=== PATIENT | female | born 1990 | race Hispanic/Latino ===

== ENCOUNTER 2018-01-22 13:20 | Emergency (ER) | payer SELFPAY ==
[2018-01-22] MEDS ORDERED: NA CHLORIDE 0.9% 1,000 ML ONE (14:23)
[2018-01-22] MEDS ORDERED: ONDANSETRON 4 MG/2 ML VIAL ONE (14:23)
[2018-01-22] MEDS ORDERED: MORPHINE 4 MG/ML SYR ONE (14:23)
[2018-01-22 14:33] LABS: Absolute Lymphocytes (CBC) 0.9 K/uL (0.7-4.9); Absolute Monocytes 0.3 K/uL (0.1-1.3); Absolute Neutrophil 2.7 K/uL (1.8-8.0); Basophils % 0.6 % (0-1.3); Hematocrit 35.8 % (36.0-45.0); Lymphocytes % 21.8 % (15.3-44.8); MCH 25.5 pg (27.0-35.0); MCV 78.3 fL (80-100); RBC Red Blood Cell Count 4.57 M/uL (3.86-4.86)
[2018-01-22 14:39] LABS: ALT/SGPT 21 U/L (12-78); AST/SGOT 17 U/L (15-37); Albumin 4.3 g/dL (3.4-5.0); Alkaline Phosphatase 74 U/L (45-117); BUN Blood Urea Nitrogen 11 mg/dL (7-18); Bicarbonate 29 mmol/L (21-32); Bilirubin Direct 0.1 mg/dL (0-0.2); Bilirubin Total 0.5 mg/dL (0.2-1.0); Glucose Level 98 mg/dL (74-106); Lipase 104 U/L (73-393); Potassium 3.9 mmol/L (3.5-5.1); Protein, Total 8.1 g/dL (6.4-8.2); Sodium Level 141 mmol/L (136-145)
[2018-01-22 15:40] LABS: Urine Blood 3+ (NEG); Urine Glucose NEGATIVE (NEG); Urine Protein TRACE (NEG); Urine Specific Gravity >1.030 (1.005-1.030)
[2018-01-22 15:43] LABS: Urine Bacteria <20 /HPF (<20); Urine Culture Reflex Order NOT NEEDED; Urine Mucus SLIGHT /HPF (NONE SEEN); Urine RBC 20-50 /HPF (NONE SEEN)
--- NOTE | 2018-01-22 16:13 | RAD REPORT ---
EXAM DESCRIPTION: CT - Stone Protocol - 01/22/2018 3:57 pm CLINICAL HISTORY: Right flank pain COMPARISON: None. TECHNIQUE: Axial 5 mm thick images were obtained without oral or IV contrast. The [id number] span s the entirety of the system partially obscuring uppermost abdomen and lung bases. All CT scans are performed using dose optimization technique as appropriate and may include automated exposure control or mA/KV adjustment according to patient size. FINDINGS: No hydronephrosis is present and no obstructing ureteral calculi. No suspicious renal mass es. Isodense masses and pyelonephritis are not excluded on a stone protocol CT scan. No urinary bladd er suspicious finding. Uterus and ovaries show no suspicious findings. Imaged portions of the liver, spleen and pancreas show no suspicious findings on non-contrast imaging . At least 1 gallstone is present 16 mm in size. No significant adrenal finding. No suspicious bowel findings. The appendix is normal. A few small nonspecific lymph nodes are present . No mass or bulky lymphadenopathy. Patient has a very small umbilical hernia containing only fat. No f ree air, free fluid or inflammatory stranding. No significant bony abnormality. IMPRESSION: No hydronephrosis, obstructing calculus or other acute finding. Isodense masses and pyelonephritis are not excluded on stone protocol technique. Cholelithiasis without evidence for active gallbladder or biliary tree process.
--- NOTE | 2018-01-22 16:36 | ER ---
Nurse's Notes [facility] Name: Letitia Alexandra Age: 27 yrs Sex: Female : 1990 Arrival Date: 01/22/2018 Time: 13:23 Bed 24 Private MD: Diagnosis: Cholelithiasis Presentation: 01/22 13:37 Presenting complaint: Patient states: Right flank pain that started yesterday afternoon aj and has not gotten better. Patient reports pain with palpation and movement. Transition of care: patient was not received from another setting of care. Onset of symptoms was January 21, 2018. Risk Assessment: Do you want to hurt yourself or someone else? Patient reports no desire to harm self or others. Initial Sepsis Screen: Does the patient meet any 2 criteria? No. Patient's initial sepsis screen is negative. Does the patient have a suspected source of infection? No. Patient's initial sepsis screen is negative. Care prior to arrival: None. 13:37 Method Of Arrival: Wheelchair aj 13:37 Acuity: RHYS 3 aj Triage Assessment: 13:38 General: Appears in no apparent distress. uncomfortable, Behavior is calm, cooperative, aj appropriate for age. Pain: Complains of pain in posterior aspect of right lateral abdomen, anterior aspect of right lateral abdomen and right femoral area. Neuro: Level of Consciousness is awake, alert, obeys commands, Oriented to person, place, time, situation, Appropriate for age. Respiratory: Airway is patent Respiratory effort is even, unlabored, Respiratory pattern is regular, symmetrical. GI: Abdomen is flat, non-distended, Reports diarrhea. : Reports pain in right flank(s). Derm: Skin is intact, is healthy with good turgor, Skin is pink, warm \T\ dry. normal. 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 - Social history:: Smoking status: Patient/guardian denies using tobacco. - Ebola Screening: : Patient negative for fever greater than or equal to 101.5 degrees Fahrenheit, and additional compatible Ebola Virus Disease symptoms Patient denies exposure to infectious person Patient denies travel to an Ebola-affected area in the 21 days before illness onset No symptoms or risks identified at this time. Screenin:57 Abuse screen: Denies threats or abuse. Nutritional screening: No deficits noted. tl3 Tuberculosis screening: No symptoms or risk factors identified. Fall Risk None identified. Assessment: 13:57 General: Appears distressed, uncomfortable, slender, well groomed, well developed, well tl3 nourished, Behavior is calm, cooperative, appropriate for age. Pain: Complains of pain in anterior aspect of right lateral abdomen and posterior aspect of right lateral abdomen Pain currently is 9 out of 10 on a pain scale. Neuro: Level of Consciousness is awake, alert, obeys commands, Oriented to person, place, time, situation, Appropriate for age. Cardiovascular: Patient's skin is warm and dry. Respiratory: Airway is patent Respiratory effort is even, unlabored, Respiratory pattern is regular, symmetrical. GI: Bowel sounds present X 4 quads. Abdomen is tender to palpation in right upper quadrant and right lower quadrant. : No signs and/or symptoms were reported regarding the genitourinary system. EENT: No signs and/or symptoms were reported regarding the EENT system. Derm: No signs and/or symptoms reported regarding the dermatologic system. Musculoskeletal: Reports. 13:57 Reassessment: pt reports that pain has been intermittent for the last three months, tl3 usually resolves within a couple of hours, but this time it has persisted for a couple of days, unable to sleep or get into a comfortable position. 15:40 Reassessment: Patient appears in no apparent distress at this time. No changes from tl3 previously documented assessment. Patient and/or family updated on plan of care and expected duration. Pain level reassessed. Patient is alert, oriented x 3, equal unlabored respirations, skin warm/dry/pink. 16:54 Reassessment: Patient appears in no apparent distress at this time. No changes from tl3 previously documented assessment. Patient and/or family updated on plan of care and expected duration. Pain level reassessed. Patient is alert, oriented x 3, equal unlabored respirations, skin warm/dry/pink. Vital Signs: 13:38 BP 105 / 69; Pulse 80; Resp 19; Temp 97.4; Pulse Ox 98% on R/A; Weight 86.18 kg; Height aj 5 ft. 5 in. (165.10 cm); 15:40 BP 107 / 67; Pulse 51; Resp 18; Pulse Ox 100% on R/A; tl3 16:54 BP 107 / 67; Pulse 56; Resp 16; Pulse Ox 100% ; tl3 13:38 Body Mass Index 31.62 (86.18 kg, 165.10 cm) ED Course: 13:23 Patient arrived in ED. rg4 13:38 Triage completed. aj 13:38 Arm band placed on right wrist. Patient placed in an exam room. aj 13:45 Marcial Ellison, BRAEDEN is PHCP. pm1 13:45 Vikash Don MD is Attending Physician. pm1 13:54 Ela Alves, TEMI is Primary Nurse. tl3 13:57 Patient has correct armband on for positive identification. Bed in low position. Call tl3 light in reach. Side rails up X 1. Pulse ox on. NIBP on. 13:57 No provider procedures requiring assistance completed. tl3 14:07 Radiology exam delayed due to test not completed at this time. vr 14:14 Initial lab(s) drawn, by me, sent to lab. Inserted saline lock: 20 gauge in right tl3 antecubital area, using aseptic technique. Blood collected. 14:15 CT Stone Protocol Sent. tl3 15:18 Urine collected: clean catch specimen, clear. tl3 15:32 Radiology exam delayed due to test not completed at this time. vr 15:[address] via wheelchair. nj 15:57 CT Stone Protocol In Process Unspecified. EDMS 16:35 Dallin Lewis MD is Referral Physician. pm1 16:54 IV discontinued, intact, bleeding controlled, No redness/swelling at site. Pressure tl3 dressing applied. Administered Medications: 14:27 Drug: Zofran 4 mg Route: IVP; Infused Over: 2 mins; Site: right antecubital; tl3 15:41 Follow up: Response: No adverse reaction tl3 14:28 Drug: NS 0.9% 1000 ml Route: IV; Rate: 1000 ml; Site: right antecubital; Delivery: tl3 Primary tubing; 15:41 Follow up: IV Status: Completed infusion; IV Intake: 1000ml tl3 14:28 Drug: morphine 4 mg Route: IVP; Infused Over: 2 mins; Site: right antecubital; tl3 15:41 Follow up: Response: No adverse reaction; Pain is decreased tl3 16:40 Drug: TORadol 30 mg Route: IVP; Infused Over: 2 mins; Site: right antecubital; tl3 16:54 Follow up: Response: Medication administered at discharge. tl3 Intake: 15:41 IV: 1000ml; Total: 1000ml. tl3 Outcome: 16:35 Discharge ordered by . pm1 16:54 Discharged to home ambulatory. tl3 16:54 Condition: stable 16:54 Discharge instructions given to patient, Instructed on discharge instructions, follow up and referral plans. medication usage, Demonstrated understanding of instructions, follow-up care, medications, Prescriptions given X 2. 16:56 Patient left the ED. tl3 Signatures: Dispatcher [employer] Melinda Burrell, RN RN Trini Cottrell Patrick, BRAEDEN FOOD SANITARIAN pm1 Dinorah Islas4 Glenn Ramirez Tammy RN RN tl3
--- NOTE | 2018-01-22 16:36 | EDPHYS ---
Physician Documentation [facility] Name: Letitia Alexandra Age: 27 yrs Sex: Female : 1990 Arrival Date: 01/22/2018 Time: 13:23 Bed 24 Private MD: ED Physician Vikash Don HPI: 01/22 15:33 This 27 yrs old Female presents to ER via Wheelchair with complaints of Right pm1 flank pain. 15:33 The patient complains of pain in the right low back. Radiation to right lower quadrant. pm1 Onset: The symptoms/episode began/occurred has been going on for three months but worse since yesterday. Modifying factors: The symptoms are alleviated by nothing. the symptoms are aggravated by movement, palpation/percussion. Associated signs and symptoms: Pertinent positives: diarrhea, Pertinent negatives: fever, headache, nausea, vomiting. Severity of pain: in the emergency department the pain is actually worse. The patient has not recently seen a physician. 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 - Social history:: Smoking status: Patient/guardian denies using tobacco. - Ebola Screening: : Patient negative for fever greater than or equal to 101.5 degrees Fahrenheit, and additional compatible Ebola Virus Disease symptoms Patient denies exposure to infectious person Patient denies travel to an Ebola-affected area in the 21 days before illness onset No symptoms or risks identified at this time. ROS: 15:33 Constitutional: Negative for fever, chills, and weight loss, Eyes: Negative for injury, pm1 pain, redness, and discharge, ENT: Negative for injury, pain, and discharge, Neck: Negative for injury, pain, and swelling, Cardiovascular: Negative for chest pain, palpitations, and edema, Respiratory: Negative for shortness of breath, cough, wheezing, and pleuritic chest pain. 15:33 : Negative for injury, bleeding, discharge, and swelling, MS/Extremity: Negative for injury and deformity, Skin: Negative for injury, rash, and discoloration, Neuro: Negative for headache, weakness, numbness, tingling, and seizure. 15:33 Abdomen/GI: Positive for abdominal pain, diarrhea, of the right lower quadrant, Negative for nausea and vomiting. 15:33 Back: Positive for flank pain, on the right. Exam: 15:33 Constitutional: This is a well developed, well nourished patient who is awake, alert, pm1 and in no acute distress. Head/Face: Normocephalic, atraumatic. Eyes: Pupils equal round and reactive to light, extra-ocular motions intact. Lids and lashes normal. Conjunctiva and sclera are non-icteric and not injected. Cornea within normal limits. Periorbital areas with no swelling, redness, or edema. ENT: Nares patent. No nasal discharge, no septal abnormalities noted. Tympanic membranes are normal and external auditory canals are clear. Oropharynx with no redness, swelling, or masses, exudates, or evidence of obstruction, uvula midline. Mucous membranes moist. Neck: Trachea midline, no thyromegaly or masses palpated, and no cervical lymphadenopathy. Supple, full range of motion without nuchal rigidity, or vertebral point tenderness. No Meningismus. Chest/axilla: Normal chest wall appearance and motion. Nontender with no deformity. No lesions are appreciated. Cardiovascular: Regular rate and rhythm with a normal S1 and S2. No gallops, murmurs, or rubs. Normal PMI, no JVD. No pulse deficits. Respiratory: Lungs have equal breath sounds bilaterally, clear to auscultation and percussion. No rales, rhonchi or wheezes noted. No increased work of breathing, no retractions or nasal flaring. 15:33 Skin: Warm, dry with normal turgor. Normal color with no rashes, no lesions, and no evidence of cellulitis. MS/ Extremity: Pulses equal, no cyanosis. Neurovascular intact. Full, normal range of motion. 15:33 Abdomen/GI: Inspection: abdomen appears normal, Bowel sounds: normal, Palpation: soft, mild abdominal tenderness, in the right lower quadrant, mass, is not appreciated, rebound tenderness, is not appreciated. 15:33 Back: normal spinal alignment noted, CVA tenderness, that is mild, is noted on the right. 15:33 Neuro: Orientation: is normal, Motor: moves all fours. Vital Signs: 13:38 BP 105 / 69; Pulse 80; Resp 19; Temp 97.4; Pulse Ox 98% on R/A; Weight 86.18 kg; Height aj 5 ft. 5 in. (165.10 cm); 15:40 BP 107 / 67; Pulse 51; Resp 18; Pulse Ox 100% on R/A; tl3 16:54 BP 107 / 67; Pulse 56; Resp 16; Pulse Ox 100% ; tl3 13:38 Body Mass Index 31.62 (86.18 kg, 165.10 cm) aj MDM: 13:46 Patient medically screened. pm1 16:22 Data reviewed: vital signs. Data interpreted: Pulse oximetry: on room air is 100 %. pm1 Interpretation: normal. 16:33 Counseling: I had a detailed discussion with the patient and/or guardian regarding: the pm1 historical points, exam findings, and any diagnostic results supporting the discharge/admit diagnosis, lab results, radiology results, the need for outpatient follow up, for definitive care, a general surgeon, to return to the emergency department if symptoms worsen or persist or if there are any questions or concerns that arise at home. 16:33 Differential diagnosis: nephrolithiasis, pyelonephritis, UTI, pancreatitis, pm1 appendicitis. 01/22 14:00 Order name: Basic Metabolic Panel; Complete Time: 15:16 pm1 01/22 14:00 Order name: CBC with Diff; Complete Time: 15:16 pm1 01/22 14:00 Order name: Hepatic Function; Complete Time: 15:16 pm1 01/22 14:00 Order name: Lipase; Complete Time: 15:16 pm1 01/22 14:00 Order name: Urine Microscopic Only; Complete Time: 15:43 pm1 01/22 15:38 Order name: Urine Dipstick--Ancillary (enter results); Complete Time: 15:43 bd 01/22 14:00 Order name: IV Saline Lock; Complete Time: 14:15 pm1 01/22 14:00 Order name: CT Stone Protocol; Complete Time: 16:20 pm1 01/22 15:38 Order name: Urine --Ancillary (enter results); Complete Time: 15:43 bd 01/22 14:00 Order name: Labs collected and sent; Complete Time: 14:15 pm1 01/22 14:00 Order name: Urine Dipstick-Ancillary (obtain specimen); Complete Time: 16:36 pm1 Administered Medications: 14:27 Drug: Zofran 4 mg Route: IVP; Infused Over: 2 mins; Site: right antecubital; tl3 15:41 Follow up: Response: No adverse reaction tl3 14:28 Drug: NS 0.9% 1000 ml Route: IV; Rate: 1000 ml; Site: right antecubital; Delivery: tl3 Primary tubing; 15:41 Follow up: IV Status: Completed infusion; IV Intake: 1000ml tl3 14:28 Drug: morphine 4 mg Route: IVP; Infused Over: 2 mins; Site: right antecubital; tl3 15:41 Follow up: Response: No adverse reaction; Pain is decreased tl3 16:40 Drug: TORadol 30 mg Route: IVP; Infused Over: 2 mins; Site: right antecubital; tl3 16:54 Follow up: Response: Medication administered at discharge. tl3 Disposition: 17:58 Co-signature as Attending Physician, Vikash Don MD. rn Disposition: 01/22/18 16:35 Discharged to Home. Impression: Cholelithiasis. - Condition is Stable. - Discharge Instructions: Cholelithiasis. - Prescriptions for Bentyl 20 mg Oral Tablet - take 1 tablet by ORAL route every 6 hours As needed; 20 tablet. Zofran 4 mg Oral Tablet - take 1 tablet by ORAL route every 12 hours As needed; 20 tablet. - Medication Reconciliation Form, Thank You Letter, Antibiotic Education, Prescription Opioid Use form. - Follow up: Emergency Department; When: As needed; Reason: Worsening of condition. Follow up: Dallin Lewis MD; When: 2 - 3 days; Reason: Recheck today's complaints, Continuance of care, Re-evaluation by your physician. - Problem is new. - Symptoms have improved. Signatures: Dispatcher [employer] Melinda Burrell RN RN aj Nieto, Roman, MD MD rn Marinas, Patrick, BRAEDEN AREA OPERATIONS DIRECTOR pm1 Ela Alves RN RN tl3 Corrections: (The following items were deleted from the chart) 16:56 16:35 01/22/2018 16:35 Discharged to Home. Impression: Cholelithiasis. Condition is tl3 Stable. Forms are Medication Reconciliation Form, Thank You Letter, Antibiotic Education, Prescription Opioid Use. Follow up: Emergency Department; When: As needed; Reason: Worsening of condition. Follow up: Dallin Lewis; When: 2 - 3 days; Reason: Recheck today's complaints, Continuance of care, Re-evaluation by your physician. Problem is new. Symptoms have improved. pm1
[2018-01-22] MEDS ORDERED: KETOROLAC 30 MG/ML INJ ONE (16:44)
== END 2018-01-22 16:56 | disposition home or self-care (01) ==
LOC: ER 13:20
DX: K80.20 Calculus of gallbladder without cholecystitis without obstruction (principal)
CPT/HCPCS: 36415; 74176; 76377; 80048; 80076; 81003; 81015; 81025; 83690; 85025; 96361; 96374; 96375; 99284; J2405; J7030